=== PATIENT | male | born 1985 | race Hispanic/Latino ===

== ENCOUNTER 2016-08-11 13:00 | Outpatient (RCR) | payer SELFPAY | END 2016-11-09 | disposition home or self-care (01) | LOC: LAB 13:00 | PROVIDERS: ATTEND Nurse Practitioner Family | DX: N46.9 Male infertility, unspecified (principal) ==

== ENCOUNTER 2020-10-07 17:43 | Inpatient (IN) | payer SELFPAY ==
[~2020-10-07] VITALS: Ht 175.2 cm; Wt 82.5 kg
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
[2020-10-07 18:04] LABS: ABG BASE EXCESS -3.9 MMOL/L (-2.5-2.5); ABG OXYGEN SATURATION 96 % (94-100); ABG PCO2 32 MMHG (35-45); ABG PH 7.42 (7.37-7.43); ABG PO2 80 MMHG (79-93); ABG TCO2 20.9 MMOL/L (21.0-31.0); ALLENS TEST YES-POS; INSPIRED O2 10L; VENTILATOR NO
[2020-10-07 18:05] VITALS: BP 140/102
[2020-10-07 18:05] LABS: PATIENT TEMP 97.9
[2020-10-07 18:13] LABS: BASOPHILS % (AUTO) 0 % (0-10); EOSINOPHILS % (AUTO) 0 % (0-10); HEMATOCRIT 45 % (40-54); HEMOGLOBIN 15.1 g/dL (13.3-17.7); LYMPHOCYTES # (AUTO) 1.4 10^3/uL (1.0-4.0); LYMPHOCYTES % (AUTO) 15 % (12-44); MEAN CORPUSCULAR HEMOGLOBIN 30 pg (25-34); MEAN CORPUSCULAR HGB CONC 34 g/dL (32-36); MEAN CORPUSCULAR VOLUME 90 fL (80-99); MEAN PLATELET VOLUME 9.8 fL (9.0-12.2); MONOCYTES # (AUTO) 1.3 10^3/uL (0.0-1.0); MONOCYTES % (AUTO) 14 % (0-12); NEUTROPHILS # (AUTO) 6.4 10^3/uL (1.8-7.8); NEUTROPHILS % (AUTO) 67 % (42-75); PLATELET COUNT 350 10^3/uL (130-400); WHITE BLOOD COUNT 9.5 10^3/uL (4.3-11.0)
[2020-10-07] MEDS ORDERED: LORazepam INJ 2 MG/ML (ATIVAN) VIAL IVP PRN (18:15)
[2020-10-07 18:23] LABS: ALBUMIN 3.8 GM/DL (3.2-4.5); POTASSIUM 4.3 MMOL/L (3.6-5.0)
[2020-10-07 18:24] LABS: CALCIUM 8.8 MG/DL (8.5-10.1)
[2020-10-07 18:25] LABS: TOTAL PROTEIN 7.3 GM/DL (6.4-8.2)
[2020-10-07 18:27] LABS: BILIRUBIN,TOTAL 0.3 MG/DL (0.1-1.0)
[2020-10-07 18:29] LABS: CREATININE SERUM 0.69 MG/DL (0.60-1.30)
--- NOTE | 2020-10-07 18:32 | Diagnostic Imaging Report ---
EXAMINATION: Chest radiograph, portable AP view. DATE: 10/07/2020 6:28 PM INDICATION: 35-year-old male, shortness of breath. The patient is Covid positive. COMPARISON: None. FINDINGS: There is spine hardware. There is pneumomediastinum. Heart size and mediastinal contours are unremarkable. There is no identified pneumothorax. There is no large pleural effusion. There are subtle hazy and/or interstitial lung opacities. Lung volumes are low. IMPRESSION: 1. Subtle hazy and/or interstitial opacities which could relate to Covid 19 infection and multifocal pneumonia/pneumonitis. Edema, other atypical infectious etiologies, and pneumonitis is also in the differential diagnosis. 2. Pneumomediastinum. Dictated by: Dictated on workstation # [id number]
[2020-10-07 18:46] LABS: BILIRUBIN,URINE NEGATIVE (NEGATIVE); CLARITY,URINE CLEAR; COLOR,URINE YELLOW; GLUCOSE, URINE (UA) NEGATIVE (NEGATIVE); KETONES,URINE NEGATIVE (NEGATIVE); LEUKOCYTE ESTERASE ,URINE NEGATIVE (NEGATIVE); NITRITE,URINE NEGATIVE (NEGATIVE); PH,URINE 7.5 (5-9); PROTEIN,URINE 1+ (NEGATIVE)
[2020-10-07 19:09] LABS: BACTERIA,URINE FEW /HPF
[2020-10-07] MEDS ORDERED: cefTRIAXone 1,000 MG in WATER (STERILE) FOR INJECTION 10 ML IV ONE (19:30)
[2020-10-07] MEDS ORDERED: NS 100 ML (IVPB) BAG IV ONE (20:30)
[2020-10-07] MEDS ORDERED: HOLD METFORMIN - RECEIVED CONTRAST 20 ML VIAL IV SCH (20:30)
[2020-10-07] MEDS ORDERED: IOHEXOL 350 MG/ML 100 ML (OMNIPAQUE 350) VIAL IV ONE (20:30)
--- NOTE | 2020-10-07 20:46 | Diagnostic Imaging Report ---
PROCEDURE: CT angiography of the chest with contrast. TECHNIQUE: Multiple contiguous axial images were obtained through the chest after uneventful bolus administration of intravenous contrast. 3D reconstructed CTA MIP acquisitions were also performed. Auto Exposure Controls were utilized during the CT exam to meet ALARA standards for radiation dose reduction. DATE: October 07, 2020. COMPARISON: Chest radiograph October 07, 2020. INDICATION: 35-year-old male, history of Covid 19 infection. Pneumomediastinum. FINDINGS: There is extensive multifocal bilateral lung consolidation with air bronchograms. There is no identified pulmonary nodule or lung mass. There is no pneumothorax. There is no pleural effusion. The central airways are patent. There is pneumomediastinum. There is no identified pulmonary embolus. The heart is not enlarged. There is no pericardial effusion. There is no identified abnormally enlarged mediastinal, hilar, or axillary lymph node which meets CT size criteria for adenopathy. There is diffuse fatty infiltration of the liver. There is a partially imaged inferior vena cava filter. Additional evaluation of the imaged portions of the upper abdomen are grossly unremarkable. Multilevel disc degenerative changes of the spine. There is spinal hardware. There is focal kyphosis and wedging at the level of T10. IMPRESSION: CT CHEST. 1. Multifocal bilateral lung consolidation most consistent with provided history of Covid 19 infection and multifocal pneumonia/pneumonitis. 2. Pneumomediastinum. 3. No identified pulmonary embolus. 4. Prominent diffuse fatty infiltration of the liver. Dictated by: Dictated on workstation # [id number]
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
[2020-10-07] MEDS ORDERED: LACTATED RINGERS 1,000 ML IV ONE (22:45)
[2020-10-07] MEDS ORDERED: LACTATED RINGERS 1,000 ML IV SCH (23:00)
[2020-10-07] MEDS ORDERED: ACETAMINOPHEN 325 MG TABLET PO PRN (23:00)
[2020-10-07] MEDS ORDERED: ONDANSETRON 4 MG/2 ML (SDV) Z0FRAN IV PRN (23:00)
[2020-10-07] MEDS: ENOXAPARIN 40 MG/0.4 ML (LOVENOX) SYR SC SCH (23:31)
[2020-10-08 00:29] VITALS: BP 139/85
[2020-10-08] MEDS ORDERED: RT-ALBUTEROL HFA 8.5 GM INHALER IH SCH ×2 (04:00)
[2020-10-08 04:27] LABS: BASOPHILS % (AUTO) 1 % (0-10); EOSINOPHILS % (AUTO) 0 % (0-10); HEMATOCRIT 45 % (40-54); HEMOGLOBIN 14.8 g/dL (13.3-17.7); LYMPHOCYTES # (AUTO) 0.7 10^3/uL (1.0-4.0); LYMPHOCYTES % (AUTO) 8 % (12-44); MEAN CORPUSCULAR HEMOGLOBIN 30 pg (25-34); MEAN CORPUSCULAR HGB CONC 33 g/dL (32-36); MEAN CORPUSCULAR VOLUME 91 fL (80-99); MONOCYTES # (AUTO) 0.3 10^3/uL (0.0-1.0); MONOCYTES % (AUTO) 4 % (0-12); NEUTROPHILS # (AUTO) 6.7 10^3/uL (1.8-7.8); NEUTROPHILS % (AUTO) 84 % (42-75); PLATELET COUNT 348 10^3/uL (130-400); WHITE BLOOD COUNT 7.9 10^3/uL (4.3-11.0)
[2020-10-08 04:43] LABS: POTASSIUM 4.8 MMOL/L (3.6-5.0)
[2020-10-08 04:48] LABS: PHOSPHORUS 3.4 MG/DL (2.3-4.7)
[2020-10-08 04:49] LABS: CREATININE SERUM 0.66 MG/DL (0.60-1.30)
[2020-10-08 04:51] LABS: MAGNESIUM 2.1 MG/DL (1.6-2.4)
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
[2020-10-08] MEDS: inSUlin ASPART (NovoLOG) 1 UNIT/0.01 ML (CHARGE PER UNIT) SC SCH ×4 (06:07→21:01)
[2020-10-08] MEDS ORDERED: CATHETER FLUSH 10 ML SYR IV PRN (07:00)
[2020-10-08] MEDS ORDERED: REMDESIVIR INJ 200 MG in NS (IVPB) 210 ML IV ONE (08:00)
[2020-10-08] MEDS ORDERED: PANTOPRAZOLE 40 MG (PROTONIX) VIAL IV SCH (09:00)
[2020-10-08] MEDS: RT-ALBUTEROL HFA 8.5 GM INHALER IH SCH ×6 (10:45→22:13)
[2020-10-08] MEDS: UMECLIDINIUM BROMIDE (INCRUSE ELLIPTA) 7'S IH SCH (10:45)
--- NOTE | 2020-10-08 11:23 | Tele-ICU Progress Note ---
Progress Note aa o , appers confortable , eating linch 10/08- BiPAP 02/17 60% . vapotherm 30L 90 % A/P Acute resp failure with COVID - now on vapotherm 30L 90 % , wilcont prn BIPAP COVID PNA - steroids -remdesivir - lovenox proph dose Focused Exam Height, Weight, BMI Height: 5'4.00" Weight: 170lbs. oz. 77.786757hf; 25.41 BMI Method:Stated LENCHO VAZ MD Oct 08, 2020 11:23
[2020-10-08] MEDS ORDERED: FAMO20TA5 PO (11:50)
[2020-10-08] MEDS ORDERED: DOCUSATE SODIUM 100 MG (COLACE) CAP PO PRN (16:00)
[2020-10-08] MEDS ORDERED: HYDROcodone/APAP 5 MG/325 MG (LORTAB) TAB PO PRN (16:00)
[2020-10-08] MEDS ORDERED: diphenhydrAMINE 25 MG TAB (BENADRYL) PO PRN (16:00)
[2020-10-08] MEDS ORDERED: CALCIUM CARBONATE 500 MG (TUMS) TAB.CHEW PO PRN (16:00)
[2020-10-08] MEDS ORDERED: FAMOTIDINE 20 MG (PEPCID) TABLET PO PRN (16:00)
[2020-10-08] MEDS: MELATONIN 3 MG TABLET PO PRN (21:00)
[2020-10-08] MEDS: SENNA W/DOCUSATE (SENOKOT S) TABLET PO SCH (21:01)
[2020-10-08] MEDS: ENOXAPARIN 40 MG/0.4 ML (LOVENOX) SYR SC SCH (21:01)
[2020-10-09] MEDS: RT-ALBUTEROL HFA 8.5 GM INHALER IH SCH ×6 (02:08→21:37)
[2020-10-09] MEDS: inSUlin ASPART (NovoLOG) 1 UNIT/0.01 ML (CHARGE PER UNIT) SC SCH ×4 (05:05→21:00)
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
[2020-10-09 06:43] LABS: BASOPHILS % (AUTO) 0 % (0-10); EOSINOPHILS % (AUTO) 0 % (0-10); HEMATOCRIT 42 % (40-54); LYMPHOCYTES # (AUTO) 1.9 10^3/uL (1.0-4.0); LYMPHOCYTES % (AUTO) 17 % (12-44); MEAN CORPUSCULAR HEMOGLOBIN 30 pg (25-34); MEAN CORPUSCULAR HGB CONC 34 g/dL (32-36); MEAN CORPUSCULAR VOLUME 89 fL (80-99); MEAN PLATELET VOLUME 9.9 fL (9.0-12.2); MONOCYTES # (AUTO) 1.1 10^3/uL (0.0-1.0); MONOCYTES % (AUTO) 11 % (0-12); NEUTROPHILS # (AUTO) 7.2 10^3/uL (1.8-7.8); NEUTROPHILS % (AUTO) 68 % (42-75); PLATELET COUNT 402 10^3/uL (130-400); WHITE BLOOD COUNT 10.6 10^3/uL (4.3-11.0)
[2020-10-09 06:51] LABS: ALBUMIN 3.4 GM/DL (3.2-4.5); POTASSIUM 4.1 MMOL/L (3.6-5.0)
[2020-10-09 06:52] LABS: CALCIUM 8.7 MG/DL (8.5-10.1)
[2020-10-09 06:53] LABS: TOTAL PROTEIN 6.5 GM/DL (6.4-8.2)
[2020-10-09 06:55] LABS: BILIRUBIN,TOTAL 0.4 MG/DL (0.1-1.0)
[2020-10-09 06:57] LABS: CREATININE SERUM 0.63 MG/DL (0.60-1.30)
[2020-10-09] MEDS: UMECLIDINIUM BROMIDE (INCRUSE ELLIPTA) 7'S IH SCH (07:12)
[2020-10-09] MEDS: PANTOPRAZOLE 40 MG (PROTONIX) TAB PO SCH (08:43)
[2020-10-09] MEDS: REMDESIVIR INJ 100 MG in NS (IVPB) 230 ML IV SCH (08:43)
[2020-10-09] MEDS: SENNA W/DOCUSATE (SENOKOT S) TABLET PO SCH ×2 (08:44→20:12)
--- NOTE | 2020-10-09 08:52 | Diagnostic Imaging Report ---
INDICATION: Dyspnea. COMPARISON: 10/07/2020. FINDINGS: There is increasing bilateral basilar atelectasis as well as increasing bilateral alveolar infiltrates when compared with the previous exam. The heart is upper limits of normal. Small bilateral pleural effusions are now present. IMPRESSION: Adverse findings with increasing bilateral infiltrates as well as significant bibasilar atelectasis developing since the previous exam. Dictated by: Dictated on workstation # [id number]
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
[2020-10-09] MEDS: ENOXAPARIN 40 MG/0.4 ML (LOVENOX) SYR SC SCH (20:13)
[2020-10-10] MEDS: RT-ALBUTEROL HFA 8.5 GM INHALER IH SCH ×6 (01:06→21:03)
[2020-10-10 04:31] LABS: BASOPHILS % (AUTO) 0 % (0-10); EOSINOPHILS % (AUTO) 0 % (0-10); HEMATOCRIT 43 % (40-54); HEMOGLOBIN 14.3 g/dL (13.3-17.7); LYMPHOCYTES # (AUTO) 1.8 10^3/uL (1.0-4.0); LYMPHOCYTES % (AUTO) 15 % (12-44); MEAN CORPUSCULAR HEMOGLOBIN 30 pg (25-34); MEAN CORPUSCULAR HGB CONC 33 g/dL (32-36); MEAN CORPUSCULAR VOLUME 89 fL (80-99); MEAN PLATELET VOLUME 9.7 fL (9.0-12.2); MONOCYTES % (AUTO) 8 % (0-12); NEUTROPHILS # (AUTO) 9.1 10^3/uL (1.8-7.8); NEUTROPHILS % (AUTO) 74 % (42-75); PLATELET COUNT 446 10^3/uL (130-400); WHITE BLOOD COUNT 12.3 10^3/uL (4.3-11.0)
[2020-10-10 04:42] LABS: ALBUMIN 3.4 GM/DL (3.2-4.5); POTASSIUM 4.2 MMOL/L (3.6-5.0)
[2020-10-10 04:43] LABS: CALCIUM 8.4 MG/DL (8.5-10.1)
[2020-10-10 04:45] LABS: TOTAL PROTEIN 6.4 GM/DL (6.4-8.2)
[2020-10-10 04:46] LABS: BILIRUBIN,TOTAL 0.4 MG/DL (0.1-1.0)
[2020-10-10 04:48] LABS: CREATININE SERUM 0.69 MG/DL (0.60-1.30)
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
[2020-10-10] MEDS: inSUlin ASPART (NovoLOG) 1 UNIT/0.01 ML (CHARGE PER UNIT) SC SCH ×4 (05:51→20:16)
--- NOTE | 2020-10-10 07:51 | Diagnostic Imaging Report ---
INDICATION: Pneumonia. Comparison made with prior examination from 10/09/2020 FINDINGS: Heart size is normal. There is bilateral airspace disease. There is no pleural effusion or pneumothorax. The mediastinum is unremarkable. There are previous post surgical changes of a thoracolumbar fusion. IMPRESSION: Unchanged diffuse bilateral airspace disease. Dictated by: Dictated on workstation # [id number]
[2020-10-10] MEDS: PANTOPRAZOLE 40 MG (PROTONIX) TAB PO SCH (08:39)
[2020-10-10] MEDS: SENNA W/DOCUSATE (SENOKOT S) TABLET PO SCH ×4 (08:40→20:17)
[2020-10-10] MEDS: ENOXAPARIN 40 MG/0.4 ML (LOVENOX) SYR SC SCH ×2 (08:40→20:18)
[2020-10-10] MEDS: REMDESIVIR INJ 100 MG in NS (IVPB) 230 ML IV SCH (08:40)
[2020-10-10] MEDS: UMECLIDINIUM BROMIDE (INCRUSE ELLIPTA) 7'S IH SCH (10:20)
[2020-10-10] MEDS ORDERED: polyethylene glycoL POWDER 17 GM (MIRALAX) PACK PO ONE (11:45)
[2020-10-10] MEDS: polyethylene glycoL POWDER 17 GM (MIRALAX) PACK PO SCH ×2 (12:28→20:18)
[2020-10-10] MEDS: LACTULOSE SYRUP 10GM/15ML (ENULOSE) 30ML UDC PO SCH ×2 (12:28→20:17)
--- NOTE | 2020-10-10 12:33 | Pulmonary Progress Note ---
Subjective Date Seen by a Provider: Oct 10, 2020 Time Seen by a Provider: 12:31 Subjective/Events-last exam pt needs o2 100% vapotherm Sepsis Event Evaluation Height, Weight, BMI Height: 5'4.00" Weight: 170lbs. oz. 77.748959ma; 25.41 BMI Method:Stated Exam Exam Patient acknowledged, consented, and participated in this virtual visit which was conducted using real time audio/video Vital Signs Date Time Temp Pulse Resp B/P (MAP) Pulse Ox O2 Delivery O2 Flow Rate FiO2 10/10/20 12:00 35.9 74 26 109/67 (81) 90 Vapotherm 35.00 100.00 10/10/20 10:31 90 Vapotherm 35.00 100 10/10/20 10:20 90 Vapotherm 30.00 65 10/10/20 08:00 Vapotherm 40.00 95 10/10/20 08:00 36.0 91 24 128/79 (95) 90 Vapotherm 40.00 95.00 10/10/20 07:27 94 Vapotherm 35.00 95 10/10/20 05:14 35 90 Vapotherm 35.00 10/10/20 04:45 36.8 79 38 142/84 (103) 100 Vapotherm 35.00 90.00 10/10/20 01:07 95 Vapotherm 35.00 90 10/09/20 23:15 36.8 79 38 134/80 (98) 91 Vapotherm 35.00 90.00 10/09/20 21:37 96 Vapotherm 35.00 90 10/09/20 20:15 Vapotherm 35.00 90 10/09/20 19:35 90 Vapotherm 35.00 85 10/09/20 19:32 36.4 83 22 137/82 (100) 93 Vapotherm 35.00 85.00 10/09/20 15:46 90 Vapotherm 35.00 85.00 10/09/20 15:01 90 Vapotherm 35.00 75 I & O 10/10/20 07:00 Intake Total 1840 ml Output Total 2175 ml Balance -335 ml Height & Weight Height: 5'4.00" Weight: 170lbs. oz. 77.114872ed; 25.41 BMI Method:Stated General Appearance: WD/WN, Chronically ill, Mild Distress HEENT: PERRL/EOMI, Normal ENT Inspection, Pharynx Normal, Moist Mucous Membranes Neck: Full Range of Motion, Normal Inspection, Non Tender Respiratory: Lungs Clear, Normal Breath Sounds, Decreased Breath Sounds, Rhonci Cardiovascular: Regular Rate, Rhythm, No Edema Capillary Refill: Less Than 3 Seconds Peripheral Pulses: 1+ Left Dors-Pedis (L), 1+ Radial Pulses (R) Gastrointestinal: normal bowel sounds, non tender, soft Extremity: Normal Capillary Refill, Normal Inspection, Normal Range of Motion (Paraplegia), Non Tender, No Calf Tenderness, No Pedal Edema, Other (no leg ulcers) Neurologic/Psychiatric: Alert, Oriented x3 Skin: Normal Color, Warm/Dry Lymphatic: No Adenopathy Results Lab Laboratory Tests 10/09/20 06:30 10/10/20 04:14 Assessment/Plan Assessment/Plan Acute hypoxemic resp failure covid pna -o2 requirements increased vapotherm 100% abg cxray reviewed lovenox, dexa,remdesivir may need higher level of care CHRISTEL ROBLES MD Oct 10, 2020 12:33
[2020-10-10] MEDS ORDERED: PATIENT MAY USE OWN MEDS, ALL MC SCH (13:00)
[2020-10-10 16:01] LABS: ABG BASE EXCESS -2.9 MMOL/L (-2.5-2.5); ABG OXYGEN SATURATION 93 % (94-100); ABG PCO2 36 MMHG (35-45); ABG PH 7.39 (7.37-7.43); ABG PO2 66 MMHG (79-93); ABG TCO2 22.4 MMOL/L (21.0-31.0)
[2020-10-10 16:02] LABS: ALLENS TEST YES-POS; INSPIRED O2 32; VENTILATOR NO
[2020-10-11] MEDS: MELATONIN 3 MG TABLET PO PRN (00:19)
[2020-10-11] MEDS: RT-ALBUTEROL HFA 8.5 GM INHALER IH SCH ×6 (02:31→21:37)
[2020-10-11] MEDS: inSUlin ASPART (NovoLOG) 1 UNIT/0.01 ML (CHARGE PER UNIT) SC SCH ×4 (05:25→21:30)
[2020-10-11 05:57] LABS: BASOPHILS % (AUTO) 0 % (0-10); EOSINOPHILS # (AUTO) 0.2 10^3/uL (0.0-0.3); EOSINOPHILS % (AUTO) 2 % (0-10); HEMATOCRIT 44 % (40-54); HEMOGLOBIN 14.4 g/dL (13.3-17.7); LYMPHOCYTES # (AUTO) 1.4 10^3/uL (1.0-4.0); LYMPHOCYTES % (AUTO) 11 % (12-44); MEAN CORPUSCULAR HEMOGLOBIN 30 pg (25-34); MEAN CORPUSCULAR HGB CONC 33 g/dL (32-36); MEAN CORPUSCULAR VOLUME 90 fL (80-99); MEAN PLATELET VOLUME 9.8 fL (9.0-12.2); MONOCYTES # (AUTO) 0.7 10^3/uL (0.0-1.0); MONOCYTES % (AUTO) 6 % (0-12); NEUTROPHILS # (AUTO) 9.6 10^3/uL (1.8-7.8); NEUTROPHILS % (AUTO) 79 % (42-75); PLATELET COUNT 468 10^3/uL (130-400); WHITE BLOOD COUNT 12.2 10^3/uL (4.3-11.0)
[2020-10-11 06:09] LABS: ALBUMIN 3.3 GM/DL (3.2-4.5); POTASSIUM 4.4 MMOL/L (3.6-5.0)
[2020-10-11 06:11] LABS: CALCIUM 8.4 MG/DL (8.5-10.1)
[2020-10-11 06:12] LABS: TOTAL PROTEIN 6.3 GM/DL (6.4-8.2)
[2020-10-11 06:13] LABS: BILIRUBIN,TOTAL 0.4 MG/DL (0.1-1.0)
[2020-10-11 06:15] LABS: CREATININE SERUM 0.66 MG/DL (0.60-1.30)
[2020-10-11] MEDS: UMECLIDINIUM BROMIDE (INCRUSE ELLIPTA) 7'S IH SCH (07:21)
[2020-10-11] MEDS: REMDESIVIR INJ 100 MG in NS (IVPB) 230 ML IV SCH (08:20)
[2020-10-11] MEDS: LACTULOSE SYRUP 10GM/15ML (ENULOSE) 30ML UDC PO SCH ×2 (08:21→21:28)
[2020-10-11] MEDS: ENOXAPARIN 40 MG/0.4 ML (LOVENOX) SYR SC SCH ×2 (08:21→21:28)
[2020-10-11] MEDS: polyethylene glycoL POWDER 17 GM (MIRALAX) PACK PO SCH ×2 (08:22→21:29)
[2020-10-11] MEDS: PANTOPRAZOLE 40 MG (PROTONIX) TAB PO SCH (08:22)
[2020-10-11] MEDS: SENNA W/DOCUSATE (SENOKOT S) TABLET PO SCH ×4 (08:22→21:28)
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
[2020-10-12] MEDS: RT-ALBUTEROL HFA 8.5 GM INHALER IH SCH ×6 (03:14→21:48)
[2020-10-12] MEDS: inSUlin ASPART (NovoLOG) 1 UNIT/0.01 ML (CHARGE PER UNIT) SC SCH ×4 (05:15→21:07)
[2020-10-12] MEDS: UMECLIDINIUM BROMIDE (INCRUSE ELLIPTA) 7'S IH SCH (07:35)
[2020-10-12] MEDS: REMDESIVIR INJ 100 MG in NS (IVPB) 230 ML IV SCH (10:01)
[2020-10-12] MEDS: SENNA W/DOCUSATE (SENOKOT S) TABLET PO SCH ×4 (10:03→21:09)
[2020-10-12] MEDS: PANTOPRAZOLE 40 MG (PROTONIX) TAB PO SCH (10:03)
[2020-10-12] MEDS: polyethylene glycoL POWDER 17 GM (MIRALAX) PACK PO SCH ×2 (10:03→21:08)
[2020-10-12] MEDS: LACTULOSE SYRUP 10GM/15ML (ENULOSE) 30ML UDC PO SCH ×2 (10:03→21:08)
[2020-10-12] MEDS: ENOXAPARIN 40 MG/0.4 ML (LOVENOX) SYR SC SCH ×2 (10:04→21:08)
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
[2020-10-13] MEDS: RT-ALBUTEROL HFA 8.5 GM INHALER IH SCH ×5 (04:05→23:15)
[2020-10-13] MEDS: inSUlin ASPART (NovoLOG) 1 UNIT/0.01 ML (CHARGE PER UNIT) SC SCH ×4 (06:00→20:33)
[2020-10-13 06:17] LABS: BASOPHILS % (AUTO) 0 % (0-10); EOSINOPHILS # (AUTO) 0.2 10^3/uL (0.0-0.3); EOSINOPHILS % (AUTO) 3 % (0-10); HEMATOCRIT 42 % (40-54); HEMOGLOBIN 13.9 g/dL (13.3-17.7); LYMPHOCYTES # (AUTO) 1.6 X 10^3 (1.0-4.0); LYMPHOCYTES % (AUTO) 19 % (12-44); MEAN CORPUSCULAR HEMOGLOBIN 30 pg (25-34); MEAN CORPUSCULAR HGB CONC 33 g/dL (32-36); MEAN CORPUSCULAR VOLUME 91 fL (80-99); MEAN PLATELET VOLUME 10.1 fL (9.0-12.2); MONOCYTES # (AUTO) 0.7 X 10^3 (0.0-1.0); MONOCYTES % (AUTO) 9 % (0-12); NEUTROPHILS # (AUTO) 5.6 X 10^3 (1.8-7.8); NEUTROPHILS % (AUTO) 67 % (42-75); PLATELET COUNT 501 10^3/uL (130-400); WHITE BLOOD COUNT 8.3 10^3/uL (4.3-11.0)
[2020-10-13 06:49] LABS: POTASSIUM 4.3 MMOL/L (3.6-5.0)
[2020-10-13 06:50] LABS: CALCIUM 8.6 MG/DL (8.5-10.1); CREATININE SERUM 0.63 MG/DL (0.60-1.30)
[2020-10-13] MEDS: UMECLIDINIUM BROMIDE (INCRUSE ELLIPTA) 7'S IH SCH (07:45)
[2020-10-13] MEDS: LACTULOSE SYRUP 10GM/15ML (ENULOSE) 30ML UDC PO SCH ×2 (08:40→20:33)
[2020-10-13] MEDS: SENNA W/DOCUSATE (SENOKOT S) TABLET PO SCH ×4 (08:40→20:34)
[2020-10-13] MEDS: ENOXAPARIN 40 MG/0.4 ML (LOVENOX) SYR SC SCH ×2 (08:41→20:34)
[2020-10-13] MEDS: PANTOPRAZOLE 40 MG (PROTONIX) TAB PO SCH (08:41)
[2020-10-13] MEDS: polyethylene glycoL POWDER 17 GM (MIRALAX) PACK PO SCH ×2 (08:41→20:34)
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
[2020-10-14] MEDS: inSUlin ASPART (NovoLOG) 1 UNIT/0.01 ML (CHARGE PER UNIT) SC SCH ×4 (06:08→20:56)
[2020-10-14] MEDS: dexAMETHasone 6 MG TAB (DECADRON) PO SCH (06:08)
[2020-10-14 06:11] LABS: ALBUMIN 3.4 GM/DL (3.2-4.5); POTASSIUM 4.6 MMOL/L (3.6-5.0)
[2020-10-14 06:12] LABS: CALCIUM 8.9 MG/DL (8.5-10.1)
[2020-10-14 06:13] LABS: TOTAL PROTEIN 6.5 GM/DL (6.4-8.2)
[2020-10-14 06:15] LABS: BILIRUBIN,TOTAL 0.4 MG/DL (0.1-1.0)
[2020-10-14 06:17] LABS: CREATININE SERUM 0.75 MG/DL (0.60-1.30)
[2020-10-14] MEDS: polyethylene glycoL POWDER 17 GM (MIRALAX) PACK PO SCH ×2 (08:45→19:40)
[2020-10-14] MEDS: LACTULOSE SYRUP 10GM/15ML (ENULOSE) 30ML UDC PO SCH ×2 (08:45→21:09)
[2020-10-14] MEDS: SENNA W/DOCUSATE (SENOKOT S) TABLET PO SCH ×4 (08:45→19:41)
[2020-10-14] MEDS: PANTOPRAZOLE 40 MG (PROTONIX) TAB PO SCH (08:50)
[2020-10-14] MEDS: ENOXAPARIN 40 MG/0.4 ML (LOVENOX) SYR SC SCH ×2 (08:50→21:09)
[2020-10-14] MEDS: UMECLIDINIUM BROMIDE (INCRUSE ELLIPTA) 7'S IH SCH (09:14)
[2020-10-14] MEDS: RT-ALBUTEROL HFA 8.5 GM INHALER IH SCH ×4 (09:14→21:57)
--- NOTE | 2020-10-14 10:39 | Tele-ICU Progress Note ---
Subjective Date Seen by a Provider: Oct 14, 2020 Time Seen by a Provider: 10:15 Subjective/Events-last exam Patient acknowledged, consented, and participated in this virtual visit which was conducted using real time audio/video. Thank you for asking us to see this patient for respiratory insufficiency and distress due to Covid pna. HPC: Recent events: Vapotherm reduced from 70% to 45%. Patient expressing a wish to go home. PMH: DM, paraplegia. SH: smoking history Y FH: Non-contributory ROS: limited by patient's clinical condition/language barrier, but no new complaints PE: VSS 96% O2 sat on VT HEENT: No obvious masses, adenopathy or JVD. Chest: clear to auscultation, but diminished considerably. CV: RRR S1 S2 No murmur or added sounds. Abd: Non-tender. Bowel sounds . : Unremarkable. Tavares N . 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 No obvious focal findings. Extremities: No edema. Capillary refill < 3 seconds. Skin: unremarkable. Results: Elevated glucose 120, platelets 501K, D-Dimer 1.84. Decreased Albumin 3.4.. A/P: Respiratory insufficiency/distress: Available chart/ vitals / labs / Images reviewed. Video assessment done using teleICU camera, rest of exam as per RN. Respiratory: Continue present management with VT. Wean FiO2 as tolerated. Monitor for increasing oxygenation needs and/or need for ICU transfer. Critical Care: critically ill patient. Discussed with RN. Asked RN to reach out to eICU if any questions or concerns later. Time spent with patient/coordination of care with other health professionals (mins): 15 Sepsis Event Evaluation Sepsis Stage: Ruled Out Height, Weight, BMI Height: 5'4.00" Weight: 170lbs. oz. 77.829649kg; 25.41 BMI Method:Stated Focused Exam Sepsis Stage: Ruled Out Exam Exam Patient acknowledged, consented, and participated in this virtual visit which was conducted using real time audio/video Vital Signs Date Time Temp Pulse Resp B/P (MAP) Pulse Ox O2 Delivery O2 Flow Rate FiO2 10/14/20 09:17 95 Vapotherm 20.00 45 10/14/20 09:15 95 Vapotherm 20.00 45 10/14/20 07:56 37.0 78 20 103/53 (70) 93 Vapotherm 20.00 45.00 10/14/20 03:35 36.2 77 20 116/71 (86) 94 Vapotherm 20.00 45.00 10/13/20 23:30 36.8 83 20 108/67 (81) 95 Vapotherm 20.00 45.00 10/13/20 23:15 96 Vapotherm 20.00 45 10/13/20 20:33 Vapotherm 20.00 45 10/13/20 19:50 36.8 89 22 117/71 (86) 96 Vapotherm 20.00 45.00 10/13/20 16:00 37.0 94 20 107/61 (76) 96 Vapotherm 20.00 10/13/20 15:11 96 Vapotherm 20.00 65 10/13/20 12:07 36.2 93 20 119/67 (84) 95 Vapotherm 20.00 45.00 10/13/20 10:51 95 Vapotherm 20.00 65 10/13/20 10:45 36.6 82 20 111/55 (73) 95 Vapotherm 20.00 65.00 I & O 10/14/20 07:00 Intake Total 2100 ml Output Total 1350 ml Balance 750 ml Height & Weight Height: 5'4.00" Weight: 170lbs. oz. 77.602802lw; 25.41 BMI Method:Stated General Appearance: No Apparent Distress, WD/WN HEENT: PERRL/EOMI, Normal ENT Inspection, Pharynx Normal, Moist Mucous Membranes Neck: Full Range of Motion, Normal Inspection, Non Tender Respiratory: Lungs Clear, Normal Breath Sounds, No Respiratory Distress Cardiovascular: Regular Rate, Rhythm, No Edema, No Murmur Capillary Refill: Less Than 3 Seconds Peripheral Pulses: 1+ Left Dors-Pedis (L), 1+ Radial Pulses (R) Gastrointestinal: normal bowel sounds, non tender, soft Extremity: Normal Inspection, Non Tender, No Pedal Edema Neurologic/Psychiatric: Alert, Oriented x3, No Motor/Sensory Deficits, Normal Mood/Affect Skin: Normal Color, Warm/Dry Lymphatic: No Adenopathy Results Lab Laboratory Tests 10/13/20 05:28 10/14/20 05:42 Assessment/Plan Assessment/Plan see free text. Critical Care: Critically Ill Patient Time spent on discussion(mins): 0 Diagnosis/Problems Diagnosis/Problems (1) COVID-19 Status: Acute JOHN EAST MD Oct 14, 2020 10:39
--- NOTE | 2020-10-14 23:49 | Progress Note ---
Subjective Subjective/Events-last exam States that he is feeling better but still requiring vapotherm. Tolerating PO diet. Review of Systems General: Fatigue, Malaise Pulmonary: Dyspnea, Cough Cardiovascular: No: Chest Pain, Palpitations, Edema Gastrointestinal: No: Nausea, Vomiting, Abdominal Pain, Diarrhea, Constipation Genitourinary: No Dysuria, No Frequency Neurological: Weakness Objective Exam Last Set of Vital Signs Vital Signs Date Time Temp Pulse Resp B/P (MAP) Pulse Ox O2 Delivery O2 Flow Rate FiO2 10/14/20 21:58 94 High Flow N/C 7.00 10/14/20 20:00 36.0 81 20 109/68 (82) 10/14/20 09:17 45 Capillary Refill : Less Than 3 Seconds I&O Intake and Output 10/14/20 00:00 Intake Total 2300 ml Output Total 1425 ml Balance 875 ml Intake Oral 2300 ml Output Urine Total 1425 ml # Bowel Movements 2 General: Alert, Oriented X3, Cooperative, Mild Distress (with minimal exertion) Lungs: Other (diminished breath sounds, diffuse wheezing) Heart: Regular Rate, No Murmurs Abdomen: Normal Bowel Sounds, Soft, No Tenderness, No Masses Extremities: No Edema, No Tenderness/Swelling Skin: No Rashes, No Breakdown Neuro: Normal Speech, Cranial Nerves 3-12 NL Psych/Mental Status: Mental Status NL, Mood NL Results/Procedures Lab Laboratory Tests 10/14/20 05:42: Sodium Level 141, Potassium Level 4.6, Chloride Level 109H, Carbon Dioxide Level 21, Anion Gap 11, Blood Urea Nitrogen 10, Creatinine 0.75, Estimat Glomerular Filtration Rate 120, BUN/Creatinine Ratio 13, Glucose Level 120H, Calcium Level 8.9, Corrected Calcium 9.4, Total Bilirubin 0.4, Aspartate Amino Transf (AST/SGOT) 43H, Alanine Aminotransferase (ALT/SGPT) 84H, Alkaline Phosphatase 91, Total Protein 6.5, Albumin 3.4 10/14/20 05:53: Glucometer 113H 10/14/20 10:55: Glucometer 143H 10/14/20 17:25: Glucometer 140H 10/14/20 20:25: Glucometer 148H Microbiology 10/07/20 Urine Culture - Final, Complete NO GROWTH Assessment/Plan Assessment/Plan (1) COVID-19 Status: Acute Assessment & Plan: 10/14: Continue to titrate oxygen to a home level, will titrate off vapotherm today if tolerates (2) Acute respiratory failure due to COVID-19 Status: Acute (3) Paraplegia Status: Chronic (4) Elevated LFTs Status: Acute Assessment & Plan: 10/14: Likely 2/2 to Covid, will need to repeat labs in a couple of weeks (5) Elevated d-dimer Status: Acute Assessment & Plan: 10/14: BAO Moise MD Oct 14, 2020 23:48
[2020-10-15 01:22] VITALS: BP 104/61
[2020-10-15 06:01] LABS: BASOPHILS % (AUTO) 0 % (0-10); EOSINOPHILS # (AUTO) 0.2 10^3/uL (0.0-0.3); EOSINOPHILS % (AUTO) 3 % (0-10); HEMATOCRIT 44 % (40-54); HEMOGLOBIN 14.5 g/dL (13.3-17.7); LYMPHOCYTES % (AUTO) 25 % (12-44); MEAN CORPUSCULAR HEMOGLOBIN 30 pg (25-34); MEAN CORPUSCULAR HGB CONC 33 g/dL (32-36); MEAN CORPUSCULAR VOLUME 91 fL (80-99); MEAN PLATELET VOLUME 9.9 fL (9.0-12.2); MONOCYTES # (AUTO) 0.8 10^3/uL (0.0-1.0); MONOCYTES % (AUTO) 11 % (0-12); NEUTROPHILS # (AUTO) 4.6 10^3/uL (1.8-7.8); NEUTROPHILS % (AUTO) 59 % (42-75); PLATELET COUNT 481 10^3/uL (130-400); WHITE BLOOD COUNT 7.7 10^3/uL (4.3-11.0)
[2020-10-15 06:33] LABS: ALBUMIN 3.3 GM/DL (3.2-4.5); BILIRUBIN,TOTAL 0.4 MG/DL (0.1-1.0); CALCIUM 8.6 MG/DL (8.5-10.1); CREATININE SERUM 0.69 MG/DL (0.60-1.30); POTASSIUM 4.5 MMOL/L (3.6-5.0); TOTAL PROTEIN 6.5 GM/DL (6.4-8.2)
[2020-10-15] MEDS: inSUlin ASPART (NovoLOG) 1 UNIT/0.01 ML (CHARGE PER UNIT) SC SCH ×3 (06:35→16:40)
[2020-10-15] MEDS: dexAMETHasone 6 MG TAB (DECADRON) PO SCH (06:45)
[2020-10-15] MEDS: ENOXAPARIN 40 MG/0.4 ML (LOVENOX) SYR SC SCH (08:53)
[2020-10-15] MEDS: PANTOPRAZOLE 40 MG (PROTONIX) TAB PO SCH (08:53)
[2020-10-15] MEDS: UMECLIDINIUM BROMIDE (INCRUSE ELLIPTA) 7'S IH SCH (09:00)
--- NOTE | 2020-10-15 10:45 | Tele-ICU Progress Note ---
Subjective Date Seen by a Provider: Oct 15, 2020 Time Seen by a Provider: 10:20 Subjective/Events-last exam Doing much better. Out to commode. Off Vapotherm and on 8L high flow. Will sign off. Please call if questions. Sepsis Event Evaluation Sepsis Stage: Ruled Out Height, Weight, BMI Height: 5'4.00" Weight: 170lbs. oz. 77.470579jg; 25.41 BMI Method:Stated Focused Exam Sepsis Stage: Ruled Out Exam Exam Patient acknowledged, consented, and participated in this virtual visit which was conducted using real time audio/video Vital Signs Date Time Temp Pulse Resp B/P (MAP) Pulse Ox O2 Delivery O2 Flow Rate FiO2 10/15/20 08:55 82 22 110/70 (83) 94 High Flow N/C 6.00 10/15/20 08:00 High Flow N/C 8.00 10/15/20 04:55 36.2 73 20 119/74 (89) 95 High Flow N/C 5.00 10/15/20 01:22 36.4 71 94 10/14/20 23:53 36.4 71 22 104/61 (75) 95 High Flow N/C 5.00 10/14/20 21:58 94 High Flow N/C 7.00 10/14/20 20:30 High Flow N/C 8.00 10/14/20 20:00 36.0 81 20 109/68 (82) 96 High Flow N/C 8.00 10/14/20 18:32 93 High Flow N/C 8.00 10/14/20 16:00 36.5 77 18 116/78 (91) 97 High Flow N/C 8.00 10/14/20 11:43 36.2 92 20 119/76 (90) 95 Vapotherm 20.00 45.00 I & O 10/15/20 07:00 Intake Total 1570 ml Output Total 2150 ml Balance -580 ml Height & Weight Height: 5'4.00" Weight: 170lbs. oz. 77.865629xu; 25.41 BMI Method:Stated General Appearance: No Apparent Distress, WD/WN HEENT: PERRL/EOMI, Normal ENT Inspection, Pharynx Normal, Moist Mucous Membranes Neck: Full Range of Motion, Normal Inspection, Non Tender Respiratory: Lungs Clear, Normal Breath Sounds, No Respiratory Distress Cardiovascular: Regular Rate, Rhythm, No Edema, No Murmur Capillary Refill: Less Than 3 Seconds Peripheral Pulses: 1+ Left Dors-Pedis (L), 1+ Radial Pulses (R) Gastrointestinal: normal bowel sounds, non tender, soft Extremity: Normal Inspection, Non Tender, No Pedal Edema Neurologic/Psychiatric: Alert, Oriented x3, No Motor/Sensory Deficits, Normal Mood/Affect Skin: Normal Color, Warm/Dry Lymphatic: No Adenopathy Results Lab Laboratory Tests 10/14/20 05:42 10/15/20 05:51 Assessment/Plan Assessment/Plan see free text Diagnosis/Problems Diagnosis/Problems (1) COVID-19 Status: Acute JOHN EAST MD Oct 15, 2020 10:45
[2020-10-15] MEDS: polyethylene glycoL POWDER 17 GM (MIRALAX) PACK PO SCH (10:50)
[2020-10-15] MEDS: LACTULOSE SYRUP 10GM/15ML (ENULOSE) 30ML UDC PO SCH (10:50)
[2020-10-15] MEDS: SENNA W/DOCUSATE (SENOKOT S) TABLET PO SCH ×2 (10:50→10:51)
[2020-10-15] MEDS: RT-ALBUTEROL HFA 8.5 GM INHALER IH SCH ×2 (15:41→15:44)
--- NOTE | 2020-10-15 16:35 | Discharge Summary ---
Diagnosis/Chief Complaint Date of Admission Oct 07, 2020 at 19:32 Date of Discharge 10/15/20 Discharge Diagnosis Problems/Diagnosis: (1) COVID-19 Assessment & Plan: 10/14: Continue to titrate oxygen to a home level, will titrate off vapotherm today if tolerates Status: Acute (2) Acute respiratory failure due to COVID-19 Status: Acute (3) Paraplegia Status: Chronic (4) Elevated LFTs Assessment & Plan: 10/14: Likely 2/2 to Covid, will need to repeat labs in a couple of weeks Status: Acute (5) Elevated d-dimer Assessment & Plan: 10/14: Lovenox Status: Acute Discharge Summary-Simple/Stand Consultations Discharge Physical Examination Allergies: Coded Allergies: No Known Drug Allergies (Unverified , 01/23/17) Vitals & I&Os Vital Sign - Last 12Hours Date Time Temp Pulse Resp B/P (MAP) Pulse Ox O2 Delivery O2 Flow Rate FiO2 10/15/20 16:03 36.4 90 22 127/78 (94) 93 High Flow N/C 8.00 10/14/20 09:17 45 Intake and Output 10/15/20 00:00 Intake Total 1120 ml Output Total 1550 ml Balance -430 ml Hospital Course See final discharge diagnosis. Discharge Instructions to patient/family Please see electronic discharge instructions given to patient. Discharge Medications Reviewed and agree with Discharge Medication list on patient's Discharge Instruction sheet BAO SIDDIQUI MD Oct 15, 2020 16:35
[2020-10-15] MEDS ORDERED: DEXA6TAB PO (16:46)
[2020-10-15] MEDS ORDERED: UMEC62.5 IH (16:46)
--- NOTE | 2020-10-15 16:49 | Discharge Summary ---
Discharge [facility] Reconcile Patient Problems Problems Reviewed?: Yes Discharge Medications New, Converted or Re-Newed RX: Transmitted to Pharmacy New Medications: Dexamethasone (Dexamethasone) 6 Mg Tablet 6 MG PO DAILY@0700, #5 TAB 1 tab x 3 days and 1/2 tab x 4 days Umeclidinium [place] (Incruse Ellipta) 62.5 Mcg Blst.w.dev 1 INH IH DAILY@0800, #1 INHALER Continued Medications: Famotidine (Famotidine) 20 Mg Tablet 20 MG PO BID PRN for HEARTBURN, TAB Patient Instructions Goal/Follow Up Appt: F/u with PCP 1 week Activity & Diet Discharge Diet: Cardiac Diet Activity as Tolerated: Yes BAO SIDDIQUI MD Oct 15, 2020 16:49
== END 2020-10-15 18:00 | disposition home or self-care (01) | DRG 177 ==
LOC: EDUNIT# 17:43 → ER 17:45 → ICU 19:32 → 4TH 10-08 16:07
PROVIDERS: ADMIT Internal Medicine; ATTEND Family Medicine
PROC: 5A09357 Assistance with Respiratory Ventilation, Less than 24 Consecutive Hours, Continuous Positive Airway Pressure (ICD-10-PCS; 2020-10-07)
PROC: XW033E5 Introduction of Remdesivir Anti-infective into Peripheral Vein, Percutaneous Approach, New Technology Group 5 (ICD-10-PCS; principal; 2020-10-08)
DX: U07.1 COVID-19 (principal); J12.82 Pneumonia due to coronavirus disease 2019; J96.01 Acute respiratory failure with hypoxia; G82.20 Paraplegia, unspecified; K21.9 Gastro-esophageal reflux disease without esophagitis; T14.8XXS Other injury of unspecified body region, sequela; V89.2XXS Person injured in unspecified motor-vehicle accident, traffic, sequela
CPT/HCPCS: 36415; 71045; 71275; 80048; 80053; 81000; 82805; 82947; 83735; 84100; 84145; 85025; 85379; 86141; 87088; 87636; 94640; 94660; 94664; 94760; 94761; 96374; 96375; 99291